=== PATIENT | female | born 1985 | race Caucasian/White ===

== ENCOUNTER 2019-06-04 16:52 | Inpatient (IN) ==
[2019-06-04] MEDS ORDERED: 0.9 % Sodium Chloride 1,000 ML IVC ONE ×2 (18:30→20:48)
[2019-06-04] MEDS ORDERED: Ondansetron 4 MG/2 ML VIAL IVP ONE ×2 (18:33→19:12)
[2019-06-04 19:37] LABS: VBG HCO3 25 mEq/L (21-27); VBG PCO2 35 mmHg (41-51); VBG PH 7.46 pH Units (7.32-7.42); VBG PO2 48 mmHg (25-50)
[2019-06-04 19:38] LABS: BUN/Creatinine Ratio 7 (6-26); Blood Urea Nitrogen 5 mg/dL (6-20); Calcium 9.1 mg/dL (8.6-10.3); Carbon Dioxide 23 mEq/L (23-29); Chloride 99 mEq/L (98-107); Glucose 116 mg/dL (70-105); Osmolality,Calculated 274 (280-300); Potassium 3.9 mEq/L (3.5-5.1); Sodium 133 mEq/L (136-145); eGFR For African Americans > 60 (> 60); eGFR For Non-African Americans > 60 (> 60)
[2019-06-04 20:15] LABS: Basophils % 0.2 %; Hematocrit 43.3 % (35.3-44.9); Hemoglobin 14.7 g/dL (11.5-15.4); Immature Granulocytes % 0.8 % (0-4); Lymphocytes # 1.6 K/mcL (0.6-4.6); Lymphocytes % 7.8 %; Mean Corpuscular HGB Conc 33.9 g/dL (31.6-35.5); Mean Corpuscular Hemoglobin 27.8 pg (28.0-33.3); Mean Corpuscular Volume 81.9 fL (83.0-100.0); Mean Platelet Volume 10.5 fL (9.4-12.4); Monocytes # 0.7 K/mcL (0.0-1.3); Monocytes % 3.4 %; Neutrophils # 17.8 K/mcL (1.6-8.9); Platelet Count 237 K/mcL (140-400); Red Blood Count 5.29 M/mcL (3.82-4.97); Red Cell Distribution Width 12.5 % (11.5-14.5); Segmented Neutrophils % 87.8 %; White Blood Count 20.3 K/mcL (4.3-11.1)
[2019-06-04 20:22] LABS: INR 1.2; Prothrombin Time 13.2 Seconds (9.4-12.1)
[2019-06-04 20:25] LABS: Activated Partial Thrombo Time 37.3 Seconds (26.0-36.0)
[2019-06-04 20:29] LABS: Bilirubin,Urine Negative (Negative); Blood,Urine Negative (Negative); Clarity,Urine Clear (Clear); Color,Urine Yellow (Yellow); Glucose,Urine (UA) Normal (Normal); Ketones,Urine Negative (Negative); Leukocyte Esterase,Urine Negative (Negative); Nitrite,Urine Negative (Negative); Protein,Urine Negative (Neg-Trace); Specific Gravity,Urine 1.014 (1.010-1.025); Urobilinogen,Urine Normal (Normal)
[2019-06-04 20:34] LABS: Alanine Aminotransferase 58 Units/L (7-52); Albumin/Globulin Ratio 1.3 (1.1-2.2); Alkaline Phosphatase 110 Units/L (34-104); Aspartate Amino Transferase 49 Units/L (13-39); BUN/Creatinine Ratio 7 (6-26); Bilirubin,Direct 0.1 mg/dL (0.0-0.2); Bilirubin,Indirect 0.3 mg/dL (0.0-1.0); Bilirubin,Total 0.4 mg/dL (0.3-1.0); Blood Urea Nitrogen 5 mg/dL (6-20); Calcium 9.4 mg/dL (8.6-10.3); Carbon Dioxide 25 mEq/L (23-29); Chloride 100 mEq/L (98-107); Globulin 3.2 g/dL (2.4-3.5); Glucose 113 mg/dL (70-105); Magnesium 1.5 mg/dL (1.6-2.6); Osmolality,Calculated 274 (280-300); Phosphorous 2.3 mg/dL (2.7-4.5); Potassium 4.1 mEq/L (3.5-5.1); Sodium 133 mEq/L (136-145); Total Protein 7.2 g/dL (6.4-8.9); Troponin I < 0.03 ng/mL (< 0.04); eGFR For African Americans > 60 (> 60); eGFR For Non-African Americans > 60 (> 60)
[2019-06-04] MEDS ORDERED: D5 IVPB ONE (20:47)
[2019-06-04] MEDS ORDERED: ACYCLOVIR IVPB ONE (20:47)
[2019-06-04] MEDS ORDERED: WATER IVPB ONE (20:47)
[2019-06-04] MEDS ORDERED: *HR* Promethazine 25 MG/ML VIAL IVP ONE (21:14)
[2019-06-04] MEDS ORDERED: Morphine Sulfate 2 MG/ML SYRINGE IVP ONE (21:47)
[2019-06-04] MEDS ORDERED: Isovue-370 500 ML BOTTLE IVP ONE (21:56)
[2019-06-04] MEDS ORDERED: *HR* Promethazine 25 MG/ML VIAL IVP PRN (23:22)
[2019-06-04] MEDS ORDERED: Naloxone 0.4 MG/ML INJ IVP PRN (23:22)
[2019-06-04] MEDS ORDERED: 0.9 % Sodium Chloride 1,000 ML IVC SCH (23:30)
[2019-06-05 02:33] LABS: Amphetamine Screen,Urine Negative ng/mL (Cutoff=1000); Barbiturate Screen,Urine Negative ng/mL (Cutoff=200); Benzodiazepines Screen,Urine Positive ng/mL (Cutoff=200); Cannabinoid Screen,Urine Negative ng/mL (Cutoff = 50); Cocaine Screen,Urine Negative ng/mL (Cutoff= 300); Opiate Screen,Urine Negative ng/mL (Cutoff=300); Phencyclidine Screen,Urine Negative ng/mL (Cutoff=25)
[2019-06-05 03:23] LABS: Basophils % 0.1 %; Eosinophils % 0.1 %; Hematocrit 37.5 % (35.3-44.9); Immature Granulocytes % 0.4 % (0-4); Lymphocytes # 1.3 K/mcL (0.6-4.6); Lymphocytes % 9.6 %; Mean Corpuscular HGB Conc 32.3 g/dL (31.6-35.5); Mean Corpuscular Hemoglobin 27.8 pg (28.0-33.3); Mean Platelet Volume 10.6 fL (9.4-12.4); Monocytes # 0.5 K/mcL (0.0-1.3); Monocytes % 3.6 %; Neutrophils # 11.6 K/mcL (1.6-8.9); Platelet Count 175 K/mcL (140-400); Red Blood Count 4.36 M/mcL (3.82-4.97); Red Cell Distribution Width 12.6 % (11.5-14.5); Segmented Neutrophils % 86.2 %; White Blood Count 13.5 K/mcL (4.3-11.1)
[2019-06-05 03:26] LABS: Hemoglobin 12.1 g/dL (11.5-15.4)
[2019-06-05 03:37] LABS: Alanine Aminotransferase 44 Units/L (7-52); Albumin 3.2 g/dL (3.5-5.7); Albumin/Globulin Ratio 1.2 (1.1-2.2); Alkaline Phosphatase 88 Units/L (34-104); Aspartate Amino Transferase 33 Units/L (13-39); BUN/Creatinine Ratio 9 (6-26); Bilirubin,Total 0.4 mg/dL (0.3-1.0); Blood Urea Nitrogen 5 mg/dL (6-20); Calcium 8.4 mg/dL (8.6-10.3); Carbon Dioxide 25 mEq/L (23-29); Chloride 108 mEq/L (98-107); Globulin 2.7 g/dL (2.4-3.5); Glucose 130 mg/dL (70-105); Osmolality,Calculated 285 (280-300); Potassium 4.1 mEq/L (3.5-5.1); Sodium 138 mEq/L (136-145); Total Protein 5.9 g/dL (6.4-8.9); eGFR For African Americans > 60 (> 60); eGFR For Non-African Americans > 60 (> 60)
[2019-06-05 05:37] LABS: Adenovirus Not Detected (Not Detect); Bordetella Pertussis Not Detected (Not Detect); Chlamydophila pneumoniae Not Detected (Not Detect); Coronavirus 229E Not Detected (Not Detect); Coronavirus HKU1 DETECTED (Not Detect); Coronavirus NL63 Not Detected (Not Detect); Coronavirus OC43 Not Detected (Not Detect); Human Metapneumovirus Not Detected (Not Detect); Human Rhinovirus/Enterovirus Not Detected (Not Detect); Influenza A Subtype 2009 H1 Not Detected (Not Detect); Influenza B Not Detected (Not Detect); Mycoplasma pneumoniae Not Detected (Not Detect); Parainfluenza Virus 1 Not Detected (Not Detect); Parainfluenza Virus 2 Not Detected (Not Detect); Parainfluenza Virus 3 Not Detected (Not Detect); Parainfluenza Virus 4 Not Detected (Not Detect); Respiratory Syncytial Virus Not Detected (Not Detect)
[2019-06-05] MEDS: *HR* Heparin 5,000 UNIT/ML VIAL SQ SCH ×3 (05:45→23:34)
[2019-06-05] MEDS ORDERED: Cefepime HCl 2,000 MG in 0.9 % Sodium Chloride Mini Bag 100 ML IVPB SCH (08:00)
[2019-06-05] MEDS ORDERED: Acyclovir 500 MG in D5% in Water 100 ML IVPB SCH (08:09)
[2019-06-05] MEDS ORDERED: Acyclovir 600 MG in D5% in Water 100 ML IVPB SCH (08:20)
[2019-06-05] MEDS ORDERED: Aminoglycoside Consult 1 EACH MC ONE (08:39)
[2019-06-05] MEDS: Ondansetron 4 MG/2 ML VIAL IVP PRN (09:16)
[2019-06-05] MEDS: lamoTRIgine 100 MG TABLET PO SCH (09:16)
[2019-06-05 12:53] LABS: Glucose,CSF 73 mg/dL (40-70); Total Protein,CSF 19 mg/dL (15-45)
[2019-06-05] MEDS: Acetaminophen 325 MG TABLET PO PRN (13:14)
[2019-06-05 13:51] LABS: Red Blood Cell,CSF < 0.002 M/mcL
[2019-06-05 14:04] LABS: Appearance,CSF Clear (Clear)
[2019-06-05] MEDS ORDERED: Ampicillin 2 GM in 0.9 % Sodium Chloride Mini Bag 100 ML IVPB SCH (16:00)
[2019-06-05 16:20] LABS: Hepatitis B Surface Antibody > 850.00 mIU/mL
[2019-06-05 16:30] LABS: Hepatitis B Surface Antigen Nonreactive (Nonreactive)
[2019-06-05 16:58] LABS: HIV-1&2 Antibody & p24 Ag Nonreactive (Nonreactive)
[2019-06-05 16:59] LABS: Hepatitis B Core IgM Nonreactive (Nonreactive)
[2019-06-05 20:36] LABS: Hepatitis C Virus Antibody Reactive (Nonreactive)
[2019-06-05] MEDS ORDERED: Cefepime HCl 2,000 MG in 0.9 % Sodium Chloride Mini Bag 100 ML IVPB ONE (20:40)
[2019-06-06 02:07] LABS: Basophils % 0.2 %; Eosinophils # 0.3 K/mcL (0.0-0.6); Eosinophils % 4.3 %; Hemoglobin 12.7 g/dL (11.5-15.4); Immature Granulocytes % 0.2 % (0-4); Lymphocytes # 2.2 K/mcL (0.6-4.6); Mean Corpuscular HGB Conc 31.8 g/dL (31.6-35.5); Mean Corpuscular Volume 88.1 fL (83.0-100.0); Mean Platelet Volume 11.2 fL (9.4-12.4); Monocytes # 0.4 K/mcL (0.0-1.3); Monocytes % 6.3 %; Neutrophils # 3.2 K/mcL (1.6-8.9); Platelet Count 137 K/mcL (140-400); Red Blood Count 4.54 M/mcL (3.82-4.97); Red Cell Distribution Width 13.1 % (11.5-14.5)
[2019-06-06 02:11] LABS: White Blood Count 6.1 K/mcL (4.3-11.1)
[2019-06-06 02:28] LABS: BUN/Creatinine Ratio 9 (6-26); Blood Urea Nitrogen 6 mg/dL (6-20); Calcium 8.9 mg/dL (8.6-10.3); Carbon Dioxide 28 mEq/L (23-29); Chloride 105 mEq/L (98-107); Glucose 131 mg/dL (70-105); Magnesium 1.8 mg/dL (1.6-2.6); Osmolality,Calculated 293 (280-300); Phosphorous 3.1 mg/dL (2.7-4.5); Potassium 3.8 mEq/L (3.5-5.1); Sodium 142 mEq/L (136-145); eGFR For African Americans > 60 (> 60); eGFR For Non-African Americans > 60 (> 60)
[2019-06-06] MEDS: Ondansetron 4 MG/2 ML VIAL IVP PRN ×2 (05:00→15:34)
[2019-06-06] MEDS: *HR* Heparin 5,000 UNIT/ML VIAL SQ SCH ×2 (05:03→13:42)
[2019-06-06] MEDS: lamoTRIgine 100 MG TABLET PO SCH (09:40)
[2019-06-06] MEDS: Acetaminophen 325 MG TABLET PO PRN (09:46)
[2019-06-06] MEDS ORDERED: *HR* Promethazine 25 MG/ML VIAL IVP ONE (10:03)
[2019-06-06] MEDS ORDERED: Ketorolac 30 MG/ML VIAL IVP ONE (10:03)
[2019-06-06 19:43] VITALS: BP 109/72
[2019-06-07 11:00] LABS: Enterovirus RNA Qual (PCR) NOT DETECTED
[2019-06-07 17:16] LABS: Epstein Barr PCR Source SERUM
[2019-06-08 11:00] LABS: HSV 1 Glycoprotein G IgG CSF 0.17 IV (<=0.89)
[2019-06-08 11:15] LABS: Herpes Simplex PCR Qual Res NOT DETECTED
[2019-06-08 11:20] LABS: Cytomegalovirus DNA (PCR) NOT DETECTED
== END 2019-06-06 21:06 | disposition home or self-care (01) | DRG 720 ==
LOC: EMEROOARM 16:52 → 2NENU 16:52 → SUATTDRO 22:47 → 2NENU 23:30
PROVIDERS: ADMIT Family Medicine; ATTEND Internal Medicine